=== PATIENT | female | born 1940 | race Caucasian/White ===

== ENCOUNTER → 2016-04-05 | Outpatient (CLI) | payer BC ==
[~2016-04-05] MED LIST: ACET-1311 PO; AMLO-110 PO; ASPI81TA28 PO; BISA10SU7 PO; ESCI1TAB6 PO; GLC/500 PO; LORA-741 PO; MOML PO; NMN10 PO; QUET1TAB32 PO; SENN-83 PO; SODIENE PR
[2016-04-05 05:46] LABS: URINE APPEARANCE CLEAR (CLEAR); URINE BILIRUBIN NEG (NEG); URINE COLOR YELLOW; URINE NITRITE NEG (NEG); URINE SPECIFIC GRAVITY 1.014 (1.000-1.030); UROBILINOGEN NEG (NEG)
[2016-04-05 05:49] LABS: MANUAL MICROSCOPIC REQUIRED? NO; REVIEW REQ? NO
== END ==
LOC: C.LABUPHEI 11:28
PROVIDERS: ATTEND Family Medicine
DX: R35.0 Frequency of micturition (principal)

== ENCOUNTER → 2016-04-08 | Outpatient (CLI) | payer BC ==
[2016-04-08 10:21] LABS: BASO % 0.3 %; BASO ABS # 0.02 K/uL (0-0.2); COMPLETE YES; EOS % 2.9 %; HEMATOCRIT 36.8 % (37-47); IG% 0.3 %; LYMPH % 38.6 %; LYMPH ABS # 2.49 K/uL (1.2-3.4); MEAN CELL VOLUME 92.9 fL (80-100); MEAN CORPUSCULAR HEMOGLOBIN 30.8 pg (25-34); MEAN CORPUSCULAR HGB CONC 33.2 g/dl (32-36); MEAN PLATELET VOLUME 10.1 fL (7.4-10.4); MONO % 9.6 %; NEUT % 48.3 %; PLATELET COUNT 220 K/uL (130-400); RED BLOOD COUNT 3.96 M/uL (4.2-5.4); WHITE BLOOD COUNT 6.45 K/uL (4.8-10.8)
[2016-04-08 10:30] LABS: ALT/SGPT 13 U/L (12-78); AST/SGOT 9 U/L (15-37); BLOOD UREA NITROGEN 30 mg/dl (7-18); BUN/CREATININE RATIO 29.7 (10-20); CALCIUM 8.5 mg/dl (8.5-10.1); CARBON DIOXIDE 29 mmol/L (21-32); CHLORIDE 108 mmol/L (98-107); GLUCOSE 131 mg/dl (70-99); SODIUM 144 mmol/L (136-145)
[2016-04-08 10:33] LABS: ALKALINE PHOSPHATASE 64 U/L (45-117); CHOLESTEROL 184 mg/dl (0-200); CHOLESTEROL/HDL RATIO 2.6; HDL CHOLESTEROL 72 mg/dl; LDL CHOLESTEROL CALCULATED 96 mg/dl; TRIGLYCERIDES 78 mg/dl (0-150); VERY LOW DENSITY LIPOPROT CALC 16 mg/dl
[2016-04-08 11:51] LABS: ESTIMATED AVERAGE GLUCOSE 140 mg/dl; HA1C FLAG Normal (Normal)
== END ==
LOC: C.LABUPHEI 09:32
PROVIDERS: ATTEND Family Medicine
DX: E11.9 Type 2 diabetes mellitus without complications (principal); J44.9 Chronic obstructive pulmonary disease, unspecified; E78.5 Hyperlipidemia, unspecified; I10 Essential (primary) hypertension

== ENCOUNTER → 2016-07-24 | Outpatient (CLI) | payer BC ==
[2016-07-24 10:26] LABS: BLOOD UREA NITROGEN 27 mg/dl (7-18); CARBON DIOXIDE 29 mmol/L (21-32); CHLORIDE 104 mmol/L (98-107); GLUCOSE 126 mg/dl (70-99); POTASSIUM 3.8 mmol/L (3.5-5.1); SODIUM 140 mmol/L (136-145)
[2016-07-24 10:35] LABS: CALCIUM 8.8 mg/dl (8.5-10.1)
[2016-07-24 10:36] LABS: URINE APPEARANCE CLEAR (CLEAR); URINE BILIRUBIN NEG (NEG); URINE COLOR YELLOW; URINE EPITHELIAL CELL AUTO >30 /lpf (0-5); URINE NITRITE POS (NEG); URINE SPECIFIC GRAVITY 1.019 (1.000-1.030); UROBILINOGEN NEG (NEG); ZZURINE CULT IF INDIC CATH YES
[2016-07-24 10:42] LABS: MANUAL MICROSCOPIC REQUIRED? NO; REVIEW REQ? YES
== END ==
LOC: C.LABUPHEI 09:11
PROVIDERS: ATTEND Family Medicine
DX: M62.81 Muscle weakness (generalized) (principal); R41.82 Altered mental status, unspecified

== ENCOUNTER → 2016-08-02 | Outpatient (CLI) | payer BC ==
[2016-08-02 08:16] LABS: BLOOD UREA NITROGEN 28 mg/dl (7-18); BUN/CREATININE RATIO 25.1 (10-20); CARBON DIOXIDE 32 mmol/L (21-32); CHLORIDE 104 mmol/L (98-107); GLUCOSE 115 mg/dl (70-99); POTASSIUM 3.8 mmol/L (3.5-5.1); SODIUM 141 mmol/L (136-145)
[2016-08-02 09:00] LABS: CALCIUM 9.5 mg/dl (8.5-10.1)
== END ==
LOC: C.LABUPHEI 07:47
PROVIDERS: ATTEND Nurse Practitioner Family
DX: J44.9 Chronic obstructive pulmonary disease, unspecified (principal)

== ENCOUNTER → 2016-08-18 | Outpatient (CLI) | payer BC ==
[2016-08-18 11:04] LABS: BLOOD UREA NITROGEN 24 mg/dl (7-18); BUN/CREATININE RATIO 25.8 (10-20); CARBON DIOXIDE 28 mmol/L (21-32); CHLORIDE 107 mmol/L (98-107); CREATININE 0.93 mg/dl (0.60-1.20); GLUCOSE 118 mg/dl (70-99); POTASSIUM 3.8 mmol/L (3.5-5.1); SODIUM 142 mmol/L (136-145)
== END | disposition home or self-care (01) ==
LOC: C.LABUPHEI 08:00
PROVIDERS: ATTEND Family Medicine
DX: J44.9 Chronic obstructive pulmonary disease, unspecified (principal)

== ENCOUNTER → 2016-10-04 | Outpatient (CLI) | payer BC ==
[2016-10-04 09:07] LABS: HEMATOCRIT 40.8 % (37-47); MEAN CORPUSCULAR HGB CONC 34.1 g/dl (32-36); MEAN PLATELET VOLUME 9.7 fL (7.4-10.4); PLATELET COUNT 287 K/uL (130-400); RED BLOOD COUNT 4.34 M/uL (4.2-5.4); WHITE BLOOD COUNT 15.44 K/uL (4.8-10.8)
[2016-10-04 09:16] LABS: ALT/SGPT 14 U/L (12-78); AST/SGOT 16 U/L (15-37); BLOOD UREA NITROGEN 27 mg/dl (7-18); BUN/CREATININE RATIO 24.7 (10-20); CALCIUM 9.1 mg/dl (8.5-10.1); CARBON DIOXIDE 29 mmol/L (21-32); CHLORIDE 102 mmol/L (98-107); GLUCOSE 164 mg/dl (70-99); POTASSIUM 4.1 mmol/L (3.5-5.1); SODIUM 139 mmol/L (136-145)
[2016-10-04 09:18] LABS: ALKALINE PHOSPHATASE 73 U/L (45-117)
[2016-10-04 10:21] LABS: ESTIMATED AVERAGE GLUCOSE 146 mg/dl; HA1C FLAG Normal (Normal)
== END | disposition home or self-care (01) ==
LOC: C.LABUPHEI 11:15
PROVIDERS: ATTEND Nurse Practitioner Family
DX: E11.9 Type 2 diabetes mellitus without complications (principal); R11.10 Vomiting, unspecified

== ENCOUNTER → 2016-10-07 | Outpatient (CLI) | payer BC ==
[2016-10-07 10:38] LABS: MEAN CELL VOLUME 95.1 fL (80-100); MEAN CORPUSCULAR HEMOGLOBIN 30.1 pg (25-34); MEAN CORPUSCULAR HGB CONC 31.6 g/dl (32-36); MEAN PLATELET VOLUME 9.7 fL (7.4-10.4); PLATELET COUNT 251 K/uL (130-400); RED BLOOD COUNT 3.89 M/uL (4.2-5.4); WHITE BLOOD COUNT 9.43 K/uL (4.8-10.8)
[2016-10-07 10:39] LABS: BASO % 0.2 %; BASO ABS # 0.02 K/uL (0-0.2); COMPLETE YES; EOS % 3.3 %; IG% 0.5 %; LYMPH % 20.7 %; LYMPH ABS # 1.95 K/uL (1.2-3.4); MONO % 6.4 %; NEUT % 68.9 %; VACUOLIZATION 1+
[2016-10-07 11:00] LABS: MANUAL MICROSCOPIC REQUIRED? NO; REVIEW REQ? NO; URINE APPEARANCE CLEAR (CLEAR); URINE BILIRUBIN NEG (NEG); URINE COLOR YELLOW; URINE EPITHELIAL CELL AUTO 0-5 /lpf (0-5); URINE NITRITE NEG (NEG); URINE PH 5.5 (4.5-7.5); URINE SPECIFIC GRAVITY 1.018 (1.000-1.030); UROBILINOGEN NEG (NEG)
== END ==
LOC: C.LABUPHEI 09:51
PROVIDERS: ATTEND Nurse Practitioner Family
DX: M62.81 Muscle weakness (generalized) (principal); R60.9 Edema, unspecified

== ENCOUNTER → 2017-03-26 | Outpatient (CLI) | payer BC ==
[2017-03-26 08:36] LABS: HEMATOCRIT 37.7 % (37-47); HEMOGLOBIN 12.5 g/dL (12.0-16.0); MEAN CELL VOLUME 94.3 fL (80-100); MEAN CORPUSCULAR HEMOGLOBIN 31.3 pg (25-34); MEAN CORPUSCULAR HGB CONC 33.2 g/dl (32-36); MEAN PLATELET VOLUME 9.6 fL (7.4-10.4); PLATELET COUNT 212 K/uL (130-400); RED CELL DISTRIBUTION WIDTH CV 13.5 % (11.5-14.5); RED CELL DISTRIBUTION WIDTH SD 46.6 fL (36.4-46.3)
[2017-03-26 08:43] LABS: BLOOD UREA NITROGEN 26 mg/dl (7-18); CALCIUM 8.6 mg/dl (8.5-10.1); CARBON DIOXIDE 25 mmol/L (21-32); CHOLESTEROL 166 mg/dl (0-200); GLUCOSE 114 mg/dl (70-99); POTASSIUM 3.7 mmol/L (3.5-5.1); SODIUM 139 mmol/L (136-145)
[2017-03-26 08:46] LABS: LDL CHOLESTEROL CALCULATED 91 mg/dl
[2017-03-26 10:42] LABS: HEMOGLOBIN A1C 6.4 % (4.5-5.6)
== END ==
LOC: C.LABUPHEI 07:59
PROVIDERS: ATTEND Nurse Practitioner Family
DX: E11.9 Type 2 diabetes mellitus without complications (principal); R10.9 Unspecified abdominal pain; I10 Essential (primary) hypertension; E78.5 Hyperlipidemia, unspecified

== ENCOUNTER 2017-07-07 21:35 | Emergency (ER) | payer BC ==
[~2017-07-07] VITALS: Ht 157.5 cm; Wt 84.5 kg
[2017-07-07 21:49] VITALS: TEMP 36.4
[2017-07-07 22:13] VITALS: Ht 157.5 cm; Wt 84.5 kg
--- NOTE | 2017-07-07 22:44 | DIAGNOSTIC IMAGING REPORT ---
HEAD WITHOUT CONTRAST (CT) CLINICAL HISTORY: 76 years-old Female with fall, left orbital injury, dementia. Acute facial trauma status post fall. TECHNIQUE: Multiple axial CT images of the head were obtained without contrast. A dose lowering technique was utilized adhering to the principles of ALARA. CT DOSE: 2275.11 mGy.cm COMPARISON: Cervical spine and maxillofacial study of same day, CT head 12/05/2015. FINDINGS: No acute intracranial hemorrhage, midline shift, intracranial mass, hydrocephalus, territorial ischemia or abnormal extra-axial collection. Moderate parenchymal atrophy, most pronounced within the frontal and temporal lobes with ex vacuo ventriculomegaly. Low-attenuation of the white matter suggests chronic microvascular ischemic changes. Cerebral vascular calcifications are noted. The calvarium is intact. The paranasal sinuses, mastoid air cells, and middle ear cavities are clear. Left supraorbital soft tissue hematoma measures 5.2 x 1.0 cm. No opaque foreign body or post septal extension identified. IMPRESSION: 1. No acute intracranial abnormality or calvarial fracture. 2. 5.2 cm left supraorbital soft tissue hematoma. The above report was generated using voice recognition software. It may contain grammatical, syntax or spelling errors. Electronically signed by: Savage Gordon M.D. 07/07/2017 10:43 PM Dictated Date/Time: 07/07/2017 10:39 PM
--- NOTE | 2017-07-07 22:50 | DIAGNOSTIC IMAGING REPORT ---
CERVICAL SPINE W/O CLINICAL HISTORY: 76 years-old Female with fall, left orbital injury, dementia. Acute left orbital trauma status post fall COMPARISON: CT head and maxillofacial study of same day. TECHNIQUE: Multiple axial CT images of the cervical spine were obtained without contrast. A dose lowering technique was utilized adhering to the principles of ALARA. FINDINGS: Bones are mildly demineralized. There is severe facet arthrosis on the left at C2-C3 and C3-C4 with moderate multilevel facet arthropathy. There is moderate posterior intervertebral disc space narrowing at C2-C3, C3-C4, C5-C6 and C6-C7. Multilevel spondylitic spurring is noted. Small posterior disc bulges are noted at several levels. Evaluation for central canal and foraminal narrowing is better assessed by MRI. No acute cervical spine fracture or subluxation identified. Mastoid air cells and middle ear cavities are clear. There is calcification of the hard palate noted. Lung apices are clear. Calcifications about the left lobe of the parotid. Calcifications of the carotid bulbs. Right-sided palatine tonsilliths. IMPRESSION: No acute cervical spine fracture or subluxation. The above report was generated using voice recognition software. It may contain grammatical, syntax or spelling errors. Electronically signed by: Savage Gordon M.D. 07/07/2017 10:48 PM Dictated Date/Time: 07/07/2017 10:43 PM
[2017-07-07 22:51] VITALS: O2SAT 93
--- NOTE | 2017-07-07 22:54 | DIAGNOSTIC IMAGING REPORT ---
FACIAL BONES-MXILLOFAC WITHOUT CLINICAL HISTORY: 76 years-old Female presenting with fall, left orbital injury, dementia. Acute left-sided facial pain status post fall COMPARISON STUDY: Cervical spine and CT head of same day TECHNIQUE: High-resolution CT scan of the facial bones is performed. Images are reviewed in the axial, sagittal, and coronal planes. IV contrast was not administered for this examination. A dose lowering technique was utilized adhering to the principles of ALARA. FINDINGS: Multiple odontogenic periapical cysts. Maxillary dental implants are also noted. Mastoid air cells and middle ear cavities are clear. Mild mucosal thickening about the frontal, maxillary, ethmoid and sphenoid sinuses. Nasal bone, maxillary sparks, zygomatic arches, pterygoid plates, bony nasal septum and vomer appear intact. There is mild rightward bowing and spurring about the nasal septum. The mandible appears intact. Severe degenerative changes about the bilateral temporal mandibular joints. Multilevel degenerative changes about the cervical spine are also seen. Supraorbital hematoma on the left with periorbital soft tissue swelling is noted measuring up to 5.1 x 1.0 cm. No post septal inflammatory changes. No opaque foreign body. The bilateral globes appear unremarkable. IMPRESSION: Left periorbital soft tissue swelling with left supraorbital hematoma. No acute facial bone fracture or dislocation identified. The above report was generated using voice recognition software. It may contain grammatical, syntax or spelling errors. Electronically signed by: Savage Gordon M.D. 07/07/2017 10:53 PM Dictated Date/Time: 07/07/2017 10:49 PM
[2017-07-07 22:57] LABS: BASO % 0.1 %; BASO ABS # 0.01 K/uL (0-0.2); EOS % 1.8 %; EOS ABS # 0.19 K/uL (0-0.5); HEMATOCRIT 39.4 % (37-47); HEMOGLOBIN 13.3 g/dL (12.0-16.0); IG# 0.02 K/uL (0.00-0.02); LYMPH ABS # 1.85 K/uL (1.2-3.4); MEAN CELL VOLUME 92.9 fL (80-100); MEAN CORPUSCULAR HEMOGLOBIN 31.4 pg (25-34); MEAN CORPUSCULAR HGB CONC 33.8 g/dl (32-36); MEAN PLATELET VOLUME 8.8 fL (7.4-10.4); MONO % 6.9 %; MONO ABS # 0.71 K/uL (0.11-0.59); NEUT ABS # 7.52 K/uL (1.4-6.5); PLATELET COUNT 199 K/uL (130-400); RED CELL DISTRIBUTION WIDTH CV 13.8 % (11.5-14.5); RED CELL DISTRIBUTION WIDTH SD 46.9 fL (36.4-46.3)
[2017-07-07] MEDS ORDERED: DIVA250T PO ×2 (22:57→22:59)
[2017-07-07] MEDS ORDERED: CHOL1000 PO (23:01)
[2017-07-07] MEDS ORDERED: GLC/500 PO (23:02)
[2017-07-07] MEDS ORDERED: NYST80OI TOP (23:07)
[2017-07-07 23:16] LABS: ALBUMIN 3.2 gm/dl (3.4-5.0); ALT/SGPT 25 U/L (12-78); AST/SGOT 21 U/L (15-37); BLOOD UREA NITROGEN 17 mg/dl (7-18); CALCIUM 8.6 mg/dl (8.5-10.1); CARBON DIOXIDE 28 mmol/L (21-32); CREATININE 0.93 mg/dl (0.60-1.20); GLUCOSE 134 mg/dl (70-99); POTASSIUM 3.9 mmol/L (3.5-5.1); SODIUM 138 mmol/L (136-145)
[2017-07-07 23:27] LABS: ALKALINE PHOSPHATASE 60 U/L (45-117); TOTAL PROTEIN 6.6 gm/dl (6.4-8.2)
[2017-07-08 00:50] VITALS: BP 155/80; PULSE 77; O2SAT 94
[2017-07-08] MEDS ORDERED: CEPHALEXIN 500MG HOME PACK 1 EA BTL PO ONE (01:00)
--- NOTE | 2017-07-08 01:02 | EMERGENCY ROOM VISIT NOTE ---
History First contact with patient: 21:41 Chief Complaint: FALL Stated Complaint: FALL, L HIP & LEG PAIN, INJURY TO NOSE, History of Present Illness The patient is a 76 year old female who presents to the Emergency Room with complaints of fall tonight when she was walking back from dinner to her room. Patient states she is not sure how she fell. Patient states she falls frequently. Patient complains of headache and facial pain. Patient denies chest pain, dyspnea, abdominal pain, leg pain, hip pain, back pain or any other medical complaints. Patient does have dementia and is able to follow commands. Tetanus is current. This is verified in [employer]. Review of Systems An 10 system review of systems was completed with positives and pertinent negatives listed in the HPI. Past Medical/Surgical History Medical Problems: (1) Barrios's palsy (2) Barrios's palsy (3) Dementia (4) Dementia (5) Diab W Renal Manifest, Type Ii Or Unspec Type, Uncontrolled (6) Diabetes (7) Diabetes (8) Diabetes mellitus type 2, uncontrolled (9) Diabetes mellitus, type II (10) Diverticulitis Colon (W/O Ment Of Hemorrhage) (11) Diverticulosis Colon (W/O Ment Of Hemorrhage) (12) Diverticulosis Colon (W/O Ment Of Hemorrhage) (13) Hypertension (14) Hypertension Nos (15) Memory impairment (16) Mixed Hyperlipidemia (17) SBO (small bowel obstruction) Family History No significant family history Social History Smoking Status: Never Smoker Alcohol Use: none Drug Use: none Marital Status: Housing Status: [facility] Occupation Status: unemployed Current/Historical Medications Scheduled Amlodipine (Norvasc), 5 MG PO DAILY Aspirin (Aspirin Ec), 81 MG PO DAILY Cephalexin Monohydrate (Keflex), 500 MG PO BID Cholecalciferol (Vitamin D3), 1,000 UNITS PO DAILY Divalproex Sodium (Depakote Er), 250 MG PO DAILY Divalproex Sodium (Depakote Er), 125 MG PO 1600 Escitalopram Oxalate (Lexapro), 5 MG PO DAILY Memantine (Namenda), 10 MG PO BID Metformin Hcl (Glucophage), 250 MG PO BID Sennosides-Docusate Sodium (Senexon-S), 2 TABS PO QAM Scheduled PRN Acetaminophen (Tylenol), 650 MG PO Q4 PRN for PAIN 2-10 Bisacodyl (Bisac-Evac), 10 MG PO DAILY PRN for Constipation Magnesium Hydroxide (Milk Of Magnesia), 30 ML PO DAILY PRN for Constipation Nystatin (Topical) (Nystatin), 1 APPLN TOP DIRECTED PRN for excoriation Sodium Phosphate/Biphosphate (Fleet Enema), 1 EA HI DAILY PRN for Constipation Physical Exam Vital Signs Date Time Temp Pulse Resp B/P (MAP) Pulse Ox O2 Delivery O2 Flow Rate FiO2 07/08/17 00:50 77 18 155/80 94 Room Air 07/07/17 23:44 64 18 171/88 94 Room Air 07/07/17 22:55 66 07/07/17 22:51 93 Room Air 07/07/17 22:51 Room Air 07/07/17 21:49 36.4 70 18 155/99 97 Room Air Physical Exam VITALS: Vitals are noted on the nurse's note and reviewed by myself. Vital signs hypertensive. GENERAL: Pleasant elderly, in no acute distress, nondiaphoretic, well-developed well-nourished. SKIN: Left orbital contusion and abrasion; the rest of the skin was without rashes, erythema, edema, or bruising. There is no tenting of the skin. Capillary reflex less than 2 seconds. HEAD: Normocephalic atraumatic. Face: Tender to palpation over left orbit. Patient can fully open and close jaw without pain. EARS: External auditory canals clear, tympanic membranes pearly hobbs without erythema or effusion bilaterally. EYES: Pupils equal round and reactive to light and accommodation. Conjunctivae without injection, sclerae without icterus. Extraocular movements intact. NOSE: Patent, turbinates without inflammation or discharge. No sinus tenderness. MOUTH: Mucous membranes moist. Pharynx without erythema or exudate. Uvula midline. Airway patent. Tongue does not deviate. NECK: Supple without nuchal rigidity. No lymphadenopathy. No thyromegaly. Cervical spine is nontender. No JVD. HEART: Regular rate and rhythm LUNGS: Clear to auscultation bilaterally without wheezes, rales or rhonchi. No retractions or accessory muscle use. ABDOMEN: Positive bowel sounds x 4. Normal tympanic percussion. Soft, nontender, without masses or organomegaly. Sutherland sign negative. No guarding or rebound tenderness. No CVA tenderness MUSCULOSKELETAL: No muscle atrophy, erythema, or edema noted. 5 out of 5 strength throughout. No thoracic or lumbar tenderness. NEURO: Patient was alert and oriented to person but not to place and time. Normal sensation to light and sharp touch. No focal neurological deficits. Medical Decision & Procedures Laboratory Results 07/07/17 22:43 Red Blood Count 4.24, Mean Corpuscular Volume 92.9, Mean Corpuscular Hemoglobin 31.4, Mean Corpuscular Hemoglobin Concent 33.8, Mean Platelet Volume 8.8, Neutrophils (%) (Auto) 73.0, Lymphocytes (%) (Auto) 18.0, Monocytes (%) (Auto) 6.9, Eosinophils (%) (Auto) 1.8, Basophils (%) (Auto) 0.1, Neutrophils # (Auto) 7.52, Lymphocytes # (Auto) 1.85, Monocytes # (Auto) 0.71, Eosinophils # (Auto) 0.19, Basophils # (Auto) 0.01 07/07/17 22:43 Test 07/07/17 22:43 07/07/17 23:38 White Blood Count 10.30 K/uL (4.8-10.8) Red Blood Count 4.24 M/uL (4.2-5.4) Hemoglobin 13.3 g/dL (12.0-16.0) Hematocrit 39.4 % (37-47) Mean Corpuscular Volume 92.9 fL (80-100) Mean Corpuscular Hemoglobin 31.4 pg (25-34) Mean Corpuscular Hemoglobin Concent 33.8 g/dl (32-36) Platelet Count 199 K/uL (130-400) Mean Platelet Volume 8.8 fL (7.4-10.4) Neutrophils (%) (Auto) 73.0 % Lymphocytes (%) (Auto) 18.0 % Monocytes (%) (Auto) 6.9 % Eosinophils (%) (Auto) 1.8 % Basophils (%) (Auto) 0.1 % Neutrophils # (Auto) 7.52 K/uL (1.4-6.5) Lymphocytes # (Auto) 1.85 K/uL (1.2-3.4) Monocytes # (Auto) 0.71 K/uL (0.11-0.59) Eosinophils # (Auto) 0.19 K/uL (0-0.5) Basophils # (Auto) 0.01 K/uL (0-0.2) RDW Standard Deviation 46.9 fL (36.4-46.3) RDW Coefficient of Variation 13.8 % (11.5-14.5) Immature Granulocyte % (Auto) 0.2 % Immature Granulocyte # (Auto) 0.02 K/uL (0.00-0.02) Anion Gap 6.0 mmol/L (3-11) Est Creatinine Clear Calc Drug Dose 51.1 ml/min Estimated GFR () 68.7 Estimated GFR (Non- 59.3 BUN/Creatinine Ratio 18.7 (10-20) Calcium Level 8.6 mg/dl (8.5-10.1) Total Bilirubin 0.3 mg/dl (0.2-1) Direct Bilirubin < 0.1 mg/dl (0-0.2) Aspartate Amino Transf (AST/SGOT) 21 U/L (15-37) Alanine Aminotransferase (ALT/SGPT) 25 U/L (12-78) Alkaline Phosphatase 60 U/L (45-117) Troponin I < 0.015 ng/ml (0-0.045) Total Protein 6.6 gm/dl (6.4-8.2) Albumin 3.2 gm/dl (3.4-5.0) Thyroid Stimulating Hormone (TSH) 2.990 uIu/ml (0.300-4.500) Urine Color YELLOW Urine Appearance CLOUDY (CLEAR) Urine pH 6.0 (4.5-7.5) Urine Specific [place] 1.012 (1.000-1.030) Urine Protein NEG (NEG) Urine Glucose (UA) NEG (NEG) Urine Ketones NEG (NEG) Urine Occult Blood TRACE (NEG) Urine Nitrite POS (NEG) Urine Bilirubin NEG (NEG) Urine Urobilinogen NEG (NEG) Urine Leukocyte Esterase LARGE (NEG) Urine WBC (Auto) >30 /hpf (0-5) Urine RBC (Auto) 0-4 /hpf (0-4) Urine Hyaline Casts (Auto) 1-5 /lpf (0-5) Urine Epithelial Cells (Auto) 0-5 /lpf (0-5) Urine Bacteria (Auto) 2+ (NEG) Medications Administered Medications (Trade) Dose Ordered Sig/Amanda Route Start Time Stop Time Status Last Admin Dose Admin Cephalexin Monohydrate (Keflex 500MG Home Pack) 1 homepack NOW ONCE PO 07/08/17 01:00 07/08/17 01:01 DC 07/08/17 01:05 1 HOMEPACK ED Course Prior records/ancillary studies reviewed and summarized above. Nursing notes reviewed. Additional history obtained from nursing The patient's history was concerning for fall with head injury. Differential diagnosis: Etiologies such as metabolic, infection, hypo/hyperglycemia, electrolyte abnormalities, cardiac sources, intracerebral event, toxicologic, neurologic, as well as others were entertained. Physical examination: As above. ER treatment provided: IV Lock On reassessment the patient felt better. Diagnostics interpretation by me: ECG: Normal sinus, no acute ST-T wave changes, first-degree AV block, rate 61. Impression normal sinus rhythm with a first-degree AV block interpreted by myself The labs revealed no worrisome leukocytosis. Negative troponin Urine seems consistent with infection and sent for culture. Prior urine culture was sensitive to everything. Patient was placed on Keflex. Patient has been states she gets a rash with penicillin. Imaging studies: CERVICAL SPINE W/O CLINICAL HISTORY: 76 years-old Female with fall, left orbital injury, dementia. Acute left orbital trauma status post fall COMPARISON: CT head and maxillofacial study of same day. TECHNIQUE: Multiple axial CT images of the cervical spine were obtained without contrast. A dose lowering technique was utilized adhering to the principles of ALARA. FINDINGS: Bones are mildly demineralized. There is severe facet arthrosis on the left at C2-C3 and C3-C4 with moderate multilevel facet arthropathy. There is moderate posterior intervertebral disc space narrowing at C2-C3, C3-C4, C5-C6 and C6-C7. Multilevel spondylitic spurring is noted. Small posterior disc bulges are noted at several levels. Evaluation for central canal and foraminal narrowing is better assessed by MRI. No acute cervical spine fracture or subluxation identified. Mastoid air cells and middle ear cavities are clear. There is calcification of the hard palate noted. Lung apices are clear. Calcifications about the left lobe of the parotid. Calcifications of the carotid bulbs. Right-sided palatine tonsilliths. IMPRESSION: No acute cervical spine fracture or subluxation. The above report was generated using voice recognition software. It may contain grammatical, syntax or spelling errors. Electronically signed by: Savage Gordon M.D. [facility] CLINICAL H[facility]: 76 years-old Female presenting with fall, left orbital injury, dementia. Acute left-sided facial pain status post fall COMPARISON STUDY: Cervical spine and CT head of same day TECHNIQUE: High-resolution CT scan of the facial bones is performed. Images are reviewed in the axial, sagittal, and coronal planes. IV contrast was not administered for this examination. A dose lowering technique was utilized adhering to the principles of ALARA. FINDINGS: Multiple odontogenic periapical cysts. Maxillary dental implants are also noted. Mastoid air cells and middle ear cavities are clear. Mild mucosal thickening about the frontal, maxillary, ethmoid and sphenoid sinuses. Nasal bone, maxillary sparks, zygomatic arches, pterygoid plates, bony nasal septum and vomer appear intact. There is mild rightward bowing and spurring about the nasal septum. The mandible appears intact. Severe degenerative changes about the bilateral temporal mandibular joints. Multilevel degenerative changes about the cervical spine are also seen. Supraorbital hematoma on the left with periorbital soft tissue swelling is noted measuring up to 5.1 x 1.0 cm. No post septal inflammatory changes. No opaque foreign body. The bilateral globes appear unremarkable. IMPRESSION: Left periorbital soft tissue swelling with left supraorbital hematoma. No acute facial bone fracture or dislocation identified. The above report was generated using voice recognition software. It may contain grammatical, syntax or spelling errors. [~ rep ct add3]] HEAD WITHOUT CONTRAST (CT) CLINICAL HISTORY: 76 years-old Female with fall, left orbital injury, dementia. Acute facial trauma status post fall. TECHNIQUE: Multiple axial CT images of the head were obtained without contrast. A dose lowering technique was utilized adhering to the principles of ALARA. CT DOSE: 2275.11 mGy.cm COMPARISON: Cervical spine and maxillofacial study of same day, CT head 12/05/2015. FINDINGS: No acute intracranial hemorrhage, midline shift, intracranial mass, hydrocephalus, territorial ischemia or abnormal extra-axial collection. Moderate parenchymal atrophy, most pronounced within the frontal and temporal lobes with ex vacuo ventriculomegaly. Low-attenuation of the white matter suggests chronic microvascular ischemic changes. Cerebral vascular calcifications are noted. The calvarium is intact. The paranasal sinuses, mastoid air cells, and middle ear cavities are clear. Left supraorbital soft tissue hematoma measures 5.2 x 1.0 cm. No opaque foreign body or post septal extension identified. IMPRESSION: 1. No acute intracranial abnormality or calvarial fracture. 2. 5.2 cm left supraorbital soft tissue hematoma. Electronically signed by: Savage Gordon M.D Exam and history seem consistent with fall with head injury and facial contusion with UTI. Patient was afebrile nontoxic. The states she is at her baseline. Patient was able to move all extremities. There were no deficits. She had no other localized pain. No other injuries were noted. Stable H&H. Negative troponin. CT imaging negative for fracture or intracranial bleed. Patient was advised to follow-up with family care in a day or 2 here in the ER sooner for headache, fevers, confusion, chest pains, abdominal pain, worsening signs or symptoms or as needed. By the evaluation outlined above emergent etiologies such as electrolyte abnormalities, cardiac sources, intracerebral event, toxologic, neurologic, abnormalities blood glucose , metabolic, as well as others were deemed relatively unlikely. Prior urine culture was sensitive to all antibiotics. Urine culture was placed today. The pt informed about the findings as listed above. All questions were answered and pleased with the treatment. Return instructions were outlined and the patient was discharged in stable condition. Outpatient prescription management: Keflex Referral: The patient was referred back to primary care physician for follow-up in 2 to 3 days for a recheck of the current condition. Case reviewed with my attending The chart was completed utilizing [employer] Speech voice recognition software. Grammatical errors, random word insertions, pronoun errors, and incomplete sentences are an occassional consequence of this system due to software limitations, ambient noise, and hardware issues. Any formal questions or concerns about the content, text, or information contained within the body of this dictation should be directly addressed to the physician child development assistant for clarification. After the patient was discharged, the [facility] called and states the patient is allergic to cephalosporins. There is no documented Keflex allergy. I informed them that the did not Make me aware of this and I informed him that we would give her Keflex and he said that was okay. I informed the nurse that she was already was given a dose without any complication while in the ER. I then informed the nurse to stop the medication and have her see the family care doctor this morning for further evaluation and treatment and for new antibiotic. She was informed that a urine culture was sent. Medical Decision As above Head Trauma GCS Score: 15 Medication Reconcilliation Current Medication List: was personally reviewed by me Blood Pressure Screening Patient's blood pressure: Elevated blood pressure Blood pressure disposition: Elevated BP felt to be situational Impression Primary Impression: Fall Additional Impressions: UTI (urinary tract infection) Head injury Contusion of face Departure Information Dispostion Home / Self-Care Condition GOOD Prescriptions Cephalexin Monohydrate (KEFLEX) 500 Mg Cap 500 MG PO BID for 7 Days, #14 CAP Prov: Meeta Umana .MARSHAL 07/08/17 Referrals Ashley Oscar (PCP) Patient Instructions My [facility] Additional Instructions Head injury: Read head injury handout and return for any symptoms. Tylenol 1000 mg as needed for pain (Maximum 3000 mg Tylenol in 24 hr period). Avoid alcohol and contact sports/activities for one week and follow up with family doctor prior to returning to these activities if still symptomatic. Ice and elevate head. Abrasion: Antibiotic ointment and bandage to the areas until healed. Follow up with family doctor or return for any signs of infection (increasing redness, swelling , drainage, or fever). Keep covered when in sun until fully healed then SPF 50 or higher until scar healed. UTI: DO NOT drive, drink alcohol, operate machinery, or perform dangerous activities today. You were given medications in the ER that can affect your ability to safely function or operate a vehicle. Keflex 500mg: Take one pill twice daily for 7 days for your urine infection. All antibiotics can cause diarrhea. If this occurs and you feel worse or it does not resolve in 1-2 days follow up with your doctor or return to the Emergency Department as this could be signs of serious underlying problems. Any medication can cause an allergic reaction, stop the pills immediately and return to the ER for rash, hives, breathing difficulties, or swelling. Acetaminophen(Tylenol) may be used for fever or pain. Use 1000mg every six hours as needed. Avoid using more than 3000mg in a 24 hour period. Rest and drink plenty of fluids as tolerated. Continue current medications. Avoid strenuous activities and anything that worsens your pain. Resume normal activities once your symptoms resolve. Return to the ER immediately for worsening or persistent pain, abdominal pain, vomiting, fevers, chest pains, difficulty breathing, worsening of your condition , or as needed. Follow up with your primary physician in 2-3 days for a recheck of your current condition. Problem Qualifiers Primary Impression: Fall Encounter type: initial encounter Qualified Codes: W19.XXXA - Unspecified fall, initial encounter
[2017-07-08] MEDS ORDERED: CEPH500C2 PO (01:04)
--- NOTE | 2017-07-08 06:52 | EMERGENCY ROOM VISIT NOTE ---
ED Visit Note First contact with patient: 21:41 I reviewed the patient's past medical history, medications, and visit nursing notes. I discussed the case with the physician recruiting assistant, examined the patient, and agree with the findings and plan as documented in the physician assistants note.
== END 2017-07-08 01:09 | disposition home or self-care (01) ==
LOC: EDBD 21:35 → C.EDB 21:36
DX: S00.83XA Contusion of other part of head, initial encounter (principal); W19.XXXA Unspecified fall, initial encounter; Y92.128 Other place in nursing home as the place of occurrence of the external cause; N39.0 Urinary tract infection, site not specified; F03.90 Unspecified dementia, unspecified severity, without behavioral disturbance, psychotic disturbance, mood disturbance, and anxiety; E11.9 Type 2 diabetes mellitus without complications; I10 Essential (primary) hypertension; K57.32 Diverticulitis of large intestine without perforation or abscess without bleeding; E78.2 Mixed hyperlipidemia; Z79.82 Long term (current) use of aspirin; Z79.84 Long term (current) use of oral hypoglycemic drugs; Z79.899 Other long term (current) drug therapy

== ENCOUNTER → 2017-09-23 | Outpatient (CLI) | payer BC ==
[~2017-09-23] MED LIST changes: -AMLO-110 PO; +AMLO5TAB3 PO; +CHOL1000 PO; +DIVA250T PO; -LORA-741 PO; +NYST80OI TOP; -QUET1TAB32 PO
== END ==
LOC: C.LABUPHEI 09:10
PROVIDERS: ATTEND Nurse Practitioner Family
DX: E11.9 Type 2 diabetes mellitus without complications (principal)